=== PATIENT | male | born 1935 | race Caucasian/White ===

== ENCOUNTER 2019-12-07 08:21 | Observation (INO) ==
--- NOTE | 2019-12-07 08:28 | History & Physical Bridge Note ---
Date of Service December 07, 2019 History & Physical Bridge Note I have examined the patient, reviewed the History & Physical and in the interval since the performance of the History & Physical I have noted the following changes of clinical significance: Pt with syncope and ICM he is for a dual chamber ICD; rediscussed procedure and potential risks and consents signed
--- NOTE | 2019-12-07 08:29 | Pre Anesthesia Assessment ---
Date of Service December 07, 2019 Pre Sedation Assessment Cardiovascular + bradycardic Respiratory normal respiratory effort, lungs clear to auscultation Pre-Sedation Airway Assessment Smoking Status: Never smoker Hx Sleep Apnea: No Hx Difficult Intubation: No Short, Thick Neck: No Thyromental Distance: < 3.5 Finger Breadths Oral Cavity: + WNL Mallampati Class: II ASA: ASA3 NPO Status Date of Last Intake of Fluids: 12/06/19 Date of Last Intake of Solid Food: 12/06/19 Procedure Planning Contraindications for Sedation: none Current Medications Reviewed: Yes Notes The planned sedation has been discussed with the patient. Informed Consent was obtained. I have identified the patient, determined the appropriateness of sedation and have assessed the patient immediately prior to the procedure. All medicine(s) and interventions are by my order.
[2019-12-07] MEDS ORDERED: fentaNYL citrate 100 MCG/2 ML VIAL ONE (09:31)
[2019-12-07] MEDS ORDERED: MIDAZOLAM HCL 5 MG/ML 1 ML VIAL ONE (09:31)
[2019-12-07] MEDS ORDERED: BACITRACIN INJ 50,000 UNIT VIAL ONE (09:36)
[2019-12-07] MEDS ORDERED: BUPIVACAINE 0.25% 30 ML VIAL ONE (09:36)
[2019-12-07] MEDS ORDERED: LIDOCAINE HCL 1% 20 ML VIAL ONE (09:36)
--- NOTE | 2019-12-07 10:05 | History & Physical Bridge Note ---
Date of Service December 07, 2019 History & Physical Bridge Note I have examined the patient, reviewed the History & Physical and in the interval since the performance of the History & Physical I have noted the following changes of clinical significance: no changes noted
--- NOTE | 2019-12-07 10:05 | Pre Anesthesia Assessment ---
Date of Service December 07, 2019 Pre Sedation Assessment Vital Signs Temp Pulse Resp BP Pulse Ox 12/07/19 08:39 36.6 C 57 L 18 169/84 H 99 Cardiovascular + bradycardic Respiratory normal respiratory effort, lungs clear to auscultation Pre-Sedation Airway Assessment Smoking Status: Former smoker Hx Sleep Apnea: No Hx Difficult Intubation: No Short, Thick Neck: No Thyromental Distance: > or= 3.5 Finger Breadths Oral Cavity: + Dentures and + WNL Mallampati Class: III ASA: ASA2 NPO Status Date of Last Intake of Fluids: 12/06/19 Time of Last Intake of Fluids: 21:30 Date of Last Intake of Solid Food: 12/06/19 Time of Last Intake of Solid Foods: 21:30 Procedure Planning Contraindications for Sedation: none Current Medications Reviewed: Yes Notes The planned sedation has been discussed with the patient. Informed Consent was obtained. I have identified the patient, determined the appropriateness of sedation and have assessed the patient immediately prior to the procedure. All medicine(s) and interventions are by my order.
[2019-12-07] MEDS ORDERED: METOPROLOL TARTRATE 1 MG/ML VIAL IV ONE (11:06)
[2019-12-07] MEDS ORDERED: AMIODARONE 150MG / 100ML D5W IV ONE (11:22)
[2019-12-07] MEDS ORDERED: AMIODARONE 360MG / 200ML D5W IV ONE (11:23)
[2019-12-07] MEDS ORDERED: AMIODARONE / D5W 360 MG/200 ML BAG IV ONE (11:30)
[2019-12-07] MEDS ORDERED: 0.2 MICRON FILTER SET 1 EA IV ONE (11:30)
[2019-12-07] MEDS ORDERED: ACETAMINOPHEN 325 MG TAB PO PRN (11:46)
--- NOTE | 2019-12-07 11:46 | Operative Report ---
Post Operative Report Pre & Post Diagnosis tbs Operation Date: 12/07/19 09:30 <No data on this case meets the specified criteria> I identified the patient and participated in the time-out.: Yes Procedure Operation Date: 12/07/19 09:30 Actual Procedures s Bundle of his Recording - Geneva Quintanilla DO p Pacer with A/V Leads (Dual) - Geneva Quintanilla DO s Venogram, Unilateral - Geneva Quintanilla DO Surgeon Geneva Quintanilla, Golf Club Manager none Estimated Blood Loss 20 Findings Consistent with Post-Op Diagnosis Specimens none Description of Procedure see official report I attest to the content of the Intraoperative Record and any orders documented therein. Any exceptions are noted below.
--- NOTE | 2019-12-07 11:46 | Post Anesthesia Assessment ---
Date of Service December 07, 2019 Post Sedation Assessment Vital Signs Temp Pulse Resp BP Pulse Ox 12/07/19 08:39 36.6 C 57 L 18 169/84 H 99 Recovery Score Activity: Moves 4 extremities Respiration: Deep Breath/Cough Circulation: +/-20% PreAnes Value Consciousness: Fully Awake Oxygen Saturation: > 92% On Room Air Discharge Sedation Level of Care: Fast Track Phase II Post Sedation Plan On clinical assessment, the patient appears to have tolerated the sedation without complications. Patient is recovering as anticipated. Patient will continue to be monitored by nursing and may be discharged when sedation discharge criteria are met per below protocol. Upon Completions of procedure up to 15 minutes continue every 5 minute vital signs and the P.A.R. score; then discharge to a Phase I or Fast Track to Phase II per the following guidelines: * Discharge Patient to appropriate Phase II area if PAR is 8 or greater or return to pre- procedure baseline. The post - procedure orders will be as directed. * If PAR score is less than 8 or not return to pre-procedure baseline then patient will follow Phase I monitoring till PAR is reached for Phase II. The Phase I may be done in procedure room or may call to secure a Phase I area. * If naloxone or flumazenil are used for reversal, hold in Phase I for continued monitoring from when last reversal dose was given for a minimum of 60 minutes or longer pending the nurse and/or physician discretion of patient condition before discharge to Phase II. Please call the Sedation Physician to re-evaluate and complete post-note for discharge to Phase II area. Do NOT discharge from procedure sedation or Phase 1 until post- sedation evaluation note is complete by procedure /sedation MD Sedation Discharge Instructions to be given to the patient at discharge to home.
--- NOTE | 2019-12-07 11:52 | Discharge Summary ---
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 Admission Exam Per Admitting Provider aaox3, NAD NC/AT, EOMI Supple No JVD Nrl S1/S2, No murmur CTA b/l no w/r/r soft nt/nd no LE edema b/l skin intact no focal deficits Principal Diagnosis TBS s/p ppm Discharge Exam aaox3, NAD NC/AT, EOMI Supple No JVD Nrl S1/S2, No murmur CTA b/l no w/r/r soft nt/nd no LE edema b/l skin intact no focal deficits left pectoral incision intact, no hematoma mild ecchymosis Discharge Data Allergies Allergy/AdvReac Type Severity Reaction Status Date / Time No Known Drug Intolerances AdvReac Unknown Unknown Verified 12/07/19 09:07 Procedures Performed Operation Date: 12/07/19 09:30 Actual Procedures s Bundle of his Recording - Geneva Quintanilla DO p Pacer with A/V Leads (Dual) - Geneva Quintanilla DO s Venogram, Unilateral - Geneva Quintanilla DO Ordered Studies ECG: AP-[employer] CXR: no PTX; leads in position Pacemaker interrogation: Normal function stable lead testing 12/07/19 06:30 EP Lab Images for PACS ONCE Hospital Course (1) Tachy-eduard syndrome: (2) SVT (supraventricular tachycardia): Total Time Total Time Spent Total Time Spent (In Minutes): 35 Total Time Includes: Examination of the Patient, Discharge Planning, Medication Reconciliation and Other Discharge Plan Discharge Items Patient Disposition: Home - Self-Care Reason For Visit: Sick Sinus Syndrome Discharge Diagnosis: TBS s/p ppm Condition on Discharge: Good Activity: As commented below Activity Comment: do not lift your left elbow over the left shoulder for 1 month Lifting: No more than 10 pounds Lifting Comment: do not lift more than 10 pounds with the left arm for 2 weeks Bathing: Keep incision dry Bathing Comment: keep dressing on and dry until wound check next week Sexual Activity: After two weeks Non-emergency contact: Production Assembly Supervisor Call non-emergency contact if: you have any medication questions Follow-up/Referrals: Jonn Nieves MD [Primary Care Provider] - Diet: Heart Healthy Add Attending Provider Instructions: device and wound check next week at [facility] as scheduled Pending Studies at Discharge: No Stand-Alone Forms: My [facility] Medications and DC Order Prescriptions: New amiodarone 200 mg Tablet 200 mg PO QAM 30 Days Qty: 30 RF: 0 Continued aspirin 81 mg Tablet,Chewable 81 mg PO DAILY RF: 0 pantoprazole 40 mg Tablet,Delayed Release (Dr/Ec) 40 mg PO DAILY RF: 0 ferrous sulfate 325 mg (65 mg iron) Tablet 325 mg PO DAILY RF: 0 finasteride 5 mg Tablet 5 mg PO DAILY RF: 0 metoprolol tartrate 25 mg Tablet 12.5 mg PO BID RF: 0 cholecalciferol (vitamin D3) [Vitamin D3] 50 mcg (2,000 unit) Tablet 50 mcg PO DAILY RF: 0 B12 Active 1,000 mcg Tablet,Chewable 1,000 mcg PO DAILY RF: 0 Discharge Orders: Discharge Order (Routine); Ordered 12/08/19 Ordered By: Geneva Quintanilla Admission Data Admit Date/Time: 12/07/19 11:04 Attending Provider: Geneva Quintanilla Admit Provider: Geneva Quintanilla Primary Care Provider: Jonn Nieves
[2019-12-07] MEDS: oxyCODONE/ACETAMINOPHEN 5mg/325mg TAB PO PRN ×2 (13:11→21:30)
[2019-12-07] MEDS: METOPROLOL TARTRATE 25 MG TAB PO SCH (21:30)
[2019-12-08] MEDS: METOPROLOL TARTRATE 25 MG TAB PO SCH (07:19)
--- NOTE | 2019-12-08 07:48 | XRay Report ---
TWO VIEW CHEST CLINICAL HISTORY: Status post pacemaker implantation. FINDINGS: PA and lateral chest radiographs are obtained. No prior studies are available for compariso n at the time of dictation. A 2-lead cardiac pacemaker has been placed and partially obscures the lef t upper chest. Leads project over the right atrial appendage and the right ventricle. The heart is mi ldly enlarged noting atherosclerotic calcification of the thoracic aorta. The pulmonary vasculature i s noncongested. Nonspecific interstitial thickening is likely chronic. Apical scarring is observed. T here is no airspace consolidation or large pleural effusion. There is no pneumothorax. The skeletal s tructures are osteopenic. The bony thorax appears intact. IMPRESSION: 1. A 2-lead cardiac pacemaker has been placed as above. No pneumothorax is seen post procedure. 2. Cardiomegaly without radiographic evidence of congestive failure. 3. No airspace consolidation or pleural effusion is identified. ACT 112: Negative or not required by law. Electronically signed by: Andre Rose M.D. 12/08/2019 7:46 AM
[2019-12-08] MEDS ORDERED: CHOLECALCIFEROL 1,000 UNITS 25 MCG TAB PO SCH (09:00)
[2019-12-08] MEDS ORDERED: CYANOCOBALAMIN 500 MCG TABLET (VITAMIN B-12) PO SCH (09:00)
[2019-12-08] MEDS ORDERED: AMIODARONE 200 MG TAB PO SCH (09:00)
[2019-12-08] MEDS ORDERED: ASPIRIN 81 MG ECTAB PO SCH (09:00)
[2019-12-08] MEDS ORDERED: FERROUS SULFATE 325 MG TAB PO SCH (09:00)
[2019-12-08] MEDS ORDERED: PANTOprazole 40 MG TAB PO SCH (09:00)
[2019-12-08] MEDS ORDERED: FINASTERIDE 5 MG TAB PO SCH (09:00)
--- NOTE | 2019-12-08 13:01 | Electrocardiogram Report ---
Test Reason : Blood Pressure : / mmHG Vent. Rate : 060 BPM Atrial Rate : 060 BPM P-R Int : 178 ms QRS Dur : 144 ms QT Int : 474 ms P-R-T Axes : 000 -61 106 degrees QTc Int : 474 ms AV dual-paced rhythm Abnormal ECG No previous ECGs available Confirmed by Aime Sesay ([id number]) on 12/08/2019 1:01:37 PM Referred By: Geneva Quintanilla Confirmed By:Aime Sesay
--- NOTE | 2019-12-10 21:11 | Operative Report (OR) ---
DATE OF OPERATION: 12/07/2019 PREOPERATIVE DIAGNOSES: Tachybrady syndrome, right bundle branch block, left anterior fascicular block. POSTOPERATIVE DIAGNOSES: Tachybrady syndrome, right bundle branch block, left anterior fascicular block, PAT. PROCEDURE: Dual chamber rate responsive permanent pacemaker with peripheral venogram under fluoroscopic guidance (the RV lead is over the left bundle position). Intracardiac electrogram His bundle mapping. SURGEON: Geneva Quintanilla DO. ASSISTANTS: None. ANESTHESIA: Monitored conscious sedation administered under my supervision by Carol Wild. Start time 10:15, end time 11:40. Total of 3 mg of Versed and 75 mcg of fentanyl. IV FLUIDS: 120 mL. CONTRAST: 20 mL. ANTIBIOTICS: Two grams of Ancef. BLOOD LOSS: 20 mL. URINE OUTPUT: Not applicable. SPECIMENS: None. FINDINGS: See below. DRAINS: None. INDICATIONS: This is an 84-year-old gentleman with a past medical history for first degree AV block, moderate AI, right bundle branch block, left anterior fascicular block, ascending aorta aneurysm dilatation, gastroesophageal reflux disease and SVT. Due to his evidence of tachybrady syndrome, he was recommended a pacemaker. CONSENT: Consent was obtained prior to the patient going into electrophysiology lab. The patient was informed of the risks, benefits and alternative procedure. Risks include but not limited to sudden cardiac ; cardiac arrhythmias; cerebrovascular accident; myocardial infarction; injury to the blood vessels, chamber of the heart, lung; bleeding and infection. The patient understood these risks and agreed with procedure as planned. Informed consent was obtained. DESCRIPTION OF THE PROCEDURE: The patient was brought into the Electrophysiology Lab in a fasting state. He was connected to continuous cardiac monitoring. A timeout was performed to ensure patient identity and procedure correctly. The patient was prepped and draped over the left infraclavicular space in normal surgical standard fashion. Monitored conscious sedation was given throughout the procedure for the patient's comfort level. T[place]umseh precautions were maintained throughout the procedure. A 10 mL of 1% lidocaine and bupivacaine mixture were given in the left deltopectoral groove. Incision was made in left deltopectoral groove. Blunt dissection performed down to identify cephalic vein; however, none could be identified, so peripheral venogram was performed to identify the axillary vein. Axillary venous access was obtained through a needlestick without any complications. The guidewire was inserted without any resistance. A 7-Syrian sheath was inserted over the guidewire without any resistance. Dilator was removed and a second guidewire was inserted through the sheath to allow for retained venous access. Sheath was removed, flushed. Then, a 7-Syrian sheath was inserted over the guidewire without any resistance. Guidewire and dilator removed. Then, the preformed His catheter was then advanced into the right atrium over a Glidewire into the right ventricle and then the Glidewire and dilator removed. The pacing lead was then advanced through the sheath and intracardiac electrogram mapping was performed of the His bundle. The AH was found to be 232 milliseconds, the HV was 95 milliseconds. Once I found the His bundle area, I marked this in BROWN 30 on my fluoro screen and then kind of mariah an imaginary line to the apex and about 2 cm down from that mariah another, marked that out on my fluoro screen as an indication of where I wanted to try to put my left bundle lead. I then positioned to the His catheter down into that region and then an JORDAN 30, started screwing the lead in with intermittent stopping to see how my electrogram changed with each time I screwed it in as well as my impedance drop and my stim to peak time. I also then gave some contrast through the sheath to see how close I was up against the septum. Once I was satisfied with my QRS morphology in V1, stim to QRS peak in V6 and impedance drops as well as the fluro imaging after giving contrast through the sheath; the His sheath was then slit under fluoroscopic guidance. Then, I inserted over the retained guidewire, an 8-Syrian OptiSeal sheath. Then, the dilator and guidewire removed and the right atrial lead was positioned in to right atrial appendage under fluoroscopic guidance. There was adequate pacing and sensing thresholds and no diaphragmatic stimulation with high output pacing. This 8-Syrian sheath was peeled away and lead was fixated to pectoralis muscle using 0 silk suture. Then I split the 7-Syrian sheath on the left bundle lead and then that lead was fixated to pectoralis muscle using 0 silk suture. A pacemaker pocket was created using blunt dissection over the pectoralis muscle within the pectoralis fascia. Then the pocket was flushed with copious amounts of bacitracin saline wash and inspected for hemostasis. Pulse generator was then attached to the leads making sure the pins were in appropriate position, passed set screw and set screws were all tightened. Pulse generator was then placed and the Tyrx pouch then placed in the pocket making sure that the leads were lying flat beneath the device. The incision was then closed in 3-layer fashion using 2-0 Vicryl interrupted suture, followed by 3-0 Vicryl interrupted suture, followed by 4-0 Monocryl running stitch and Dermabond was applied followed by a Telfa and micropore dressing. Of note, the patient was going in and out of PAT during the procedure, so ended up giving him 5 of metoprolol, which did not do much, so then we started amiodarone bolus of 150 followed by a drip. Of note, the final stim to peak QRS in V5 was 86 milliseconds. Again, the HV was 95 milliseconds, the AH was 232 milliseconds and the final QRS duration was 104 milliseconds. EQUIPMENT: 1. Pulse generator is a [employer] XT DR RADHA Diaz [id number], serial number [id number]. 2. Right atrial lead: Medtronic 5076-52 cm, serial number [id number]. 3. Right ventricular lead: Medtronic 3830-69 cm, serial number [id number]. INTRAOPERATIVE TESTIN. Right atrial lead: P waves 1 millivolt, impedance 582 ohms, threshold 0.6 volts at 0.4 milliseconds. 2. Left bundle lead: R waves 7.6 millivolts, impedance 690 ohms, threshold 0.5 volts at 0.4 milliseconds. FINAL MEASUREMENTS THROUGH THE DEVICE: 1. Right atrial lead: P waves 1.1 millivolts, impedance 494 ohms, threshold 0.5 volts at 0.4 milliseconds. 2. Left bundle lead: R waves 2.3 millivolts, impedance 684 ohms, threshold 0.75 volts at 0.4 milliseconds. FINAL PARAMETERS: DDDR 60/130, right atrial amplitude 3.5 volts, pulse width 0.4 milliseconds, sensitivity 0.3 millivolts. Right ventricular amplitude 3.5 volts, pulse width 0.4 milliseconds, sensitivity 1.2 millivolts. IMPRESSION: Successful implantation of a dual chamber rate responsive permanent pacemaker (where the RV lead is in the left bundle position) along with peripheral venogram and intracardiac electrogram mapping of the His bundle under fluoroscopic guidance secondary to tachybrady syndrome. PLAN: Monitor the patient overnight, 12-lead ECG, chest x-ray. He is not allowed to lift left elbow or left shoulder for 1 month. He cannot lift more than 10 pounds with the left arm for 2 weeks. He is to keep the dressing on and dry until his wound check next week. We will continue the amiodarone bag until it empties and then help to be discharged home on 200 a day in addition to his metoprolol. I attest to the content of the Intraoperative Record and any orders documented therein. Any exceptions are noted below. CHANTELLD
== END 2019-12-08 10:11 | disposition home or self-care (01) ==
LOC: EP 08:21 → 2E 08:21